=== PATIENT | female | born 1975 | race Asian ===

== ENCOUNTER 2022-08-24 06:58 | Emergency (ER) | payer OTHER ==
[2022-08-24] MEDS ORDERED: predniSONE 20 MG TAB ONE (07:33)
[2022-08-24] MEDS ORDERED: Famotidine 20 MG TAB ONE (07:47)
[2022-08-24] MEDS ORDERED: Cetirizine HCl 10 MG TAB PO SCH (08:00)
[2022-08-24] MEDS ORDERED: Cetirizine HCl 5 MG/5 ML UDCUP PO SCH (08:15)
== END 2022-08-24 08:48 | disposition home or self-care (01) ==
LOC: CSHERS 06:58
DX: L50.9 Urticaria, unspecified (principal)
CPT/HCPCS: 99283; J7512

== ENCOUNTER 2025-04-19 09:47 | Outpatient (CLI) | payer OTHER | END 2025-04-19 09:48 | disposition home or self-care (01) | LOC: CSHMAMMO 09:47 | PROVIDERS: ATTEND Family Medicine | DX: Z12.31 Encounter for screening mammogram for malignant neoplasm of breast (principal); Z98.82 Breast implant status | CPT/HCPCS: 77063; 77067 ==